=== PATIENT | male | born 1990 | race Caucasian/White ===

== ENCOUNTER 2016-12-08 09:58 | Inpatient (IN) | payer OTHER ==
[~2016-12-08] VITALS: Ht 175.3 cm; Wt 65.5 kg
[~2016-12-08 09:58] MED LIST: LEXAPRO10 MG PO
[2016-12-08 11:08] LABS: ADD MIUA? NO; BILIRUBIN NEGATIVE; BLOOD NEGATIVE; COLOR YELLOW ((YELLOW)); GLUCOSE (STRIP) NEGATIVE; KETONES NEGATIVE; LEUKOCYTES NEGATIVE; NITRITE NEGATIVE; PROTEIN (STRIP) NEGATIVE; SPECIFIC GRAVITY 1.012 (1.000-1.030); UROBILINOGEN 0.2 MG/DL (0.2-1.0)
[2016-12-08 11:09] LABS: BASOPHIL COUNT 0.1 K/uL (0-0.1); EOSINOPHIL (%) 1.7 % (0-5); EOSINOPHIL COUNT 0.2 K/uL (0-0.3); HEMATOCRIT 44.3 % (38.0-50.0); IMMATURE GRANULOCYTE (%) 0.3 % (0.0-0.7); INSTRUMENT ABS NEUTROPHIL CT 6.5 K/uL; LYMPHOCYTE COUNT 1.4 K/uL (1.0-2.8); MCHC 35.2 G/DL (30.0-36.0); MEAN PLAT.VOLUME 9.2 uM^3 (9.0-12.4); MONOCYTE (%) 7.4 % (3-12); MONOCYTE COUNT 0.7 K/uL (0-0.8); NEUTROPHIL COUNT 6.5 K/uL (1.8-6.4); PLATELET COUNT 254 K/uL (156-360); RBC DIS.WIDTH-CV 11.1 % (11.8-14.6); RBC DIS.WIDTH-SD 37.3 % (39-53); RED BLOOD COUNT 4.87 M/uL (4.00-5.50); WHITE BLOOD COUNT 8.8 K/uL (4.1-10.2)
[2016-12-08 11:17] LABS: ADD MEDTOX COMMENT Y; AMPHETAMINE NEGATIVE (500 ng/mL); BARBITURATES NEGATIVE (200 ng/mL); BENZODIAZEPINES NEGATIVE (150 ng/mL); COCAINE NEGATIVE (150 ng/mL); INTERNAL CONTROLS VALID? YES; METHADONE NEGATIVE (200 ng/mL); METHAMPHETAMINE NEGATIVE (500 ng/mL); OPIATES (MORPHINE) NEGATIVE (100 ng/mL); OXYCODONE NEGATIVE (100 ng/mL); PHENCYCLIDINE NEGATIVE (25 ng/mL); PROPOXYPHENE NEGATIVE (300 ng/mL); THC CANNABINOIDS PRESUMPTIVE POSITIVE (50 ng/mL); TRICYCLIC ANTIDEPRESSANTS NEGATIVE (300 ng/mL)
[2016-12-08 11:19] LABS: CHLORIDE 108 mEq/L (99-109); POTASSIUM 3.9 mEq/L (3.7-5.4); SODIUM 141 mEq/L (136-147)
[2016-12-08 11:21] LABS: GLUCOSE 97 mg/dL (70-99)
[2016-12-08 11:22] LABS: ANION GAP 9 MEQ/L (2-14)
[2016-12-08 11:24] LABS: SERUM ETHYL ALCOHOL < 10 mg/dL
[2016-12-08 11:25] LABS: GFR ESTIMATE (CALCULATED) > 59 mL/min/
[2016-12-08 11:26] LABS: UREA NITROGEN (BUN) 11 mg/dL (9-23)
[2016-12-08] MEDS ORDERED: ADVIL200 MG PO (15:39)
[2016-12-08] MEDS ORDERED: FIBER GUMMIES1 EACH PO (15:40)
[2016-12-08 15:58] VITALS: BP 120/73
[2016-12-08 16:08] VITALS: BP 120/73
[2016-12-09 07:48] VITALS: BP 96/53
[2016-12-09 15:45] VITALS: BP 140/81
[2016-12-10 07:58] VITALS: BP 122/62
[2016-12-10] MEDS ORDERED: ARIPIPRAZOLE2 MG PO (10:51)
[2016-12-10] MEDS ORDERED: FLUOXETINE HCL20 MG PO (10:51)
[2016-12-10 15:53] VITALS: BP 116/69
[2016-12-11 07:55] VITALS: BP 123/56
== END 2016-12-11 11:04 | disposition home or self-care (01) | DRG 885 ==
LOC: EME 09:58 → 1WEST 13:12 → EDOF 13:12 → 1WEST 15:35 → ENRESERV 15:35 → 1WEST 12-11 11:04
PROVIDERS: Emergency Medicine
DX: F33.1 Major depressive disorder, recurrent, moderate (principal); F12.10 Cannabis abuse, uncomplicated; F17.200 Nicotine dependence, unspecified, uncomplicated; F40.10 Social phobia, unspecified; R45.851 Suicidal ideations; Z91.14 Patient's other noncompliance with medication regimen
CPT/HCPCS: 80048; 81003; 84999; 85025; 90839; 97150 GO; 97165 GO; 99281; 99285; G0480